=== PATIENT | male | born 1960 | race Caucasian/White ===

== ENCOUNTER 2017-05-16 06:15 | Inpatient (IN) | payer BC ==
[~2017-05-16] VITALS: Ht 175.3 cm; Wt 89.5 kg
[2017-05-16 06:21] VITALS: Ht 175.3 cm; Wt 89.5 kg
[2017-05-16 08:01] LABS: BASOPHIL % 0.3 % (0-2); PLATELET COUNT 135 x10^3mcL (130-400); RED CELL DISTRIBUTION WIDTH 13.5 % (11.5-14.5)
[2017-05-16 08:05] LABS: CALCIUM 8.8 mg/dL (8.5-10.1); CARBON DIOXIDE 20.9 mmol/L (21-32); CREATININE SERUM 2.1 mg/dL (0.7-1.3); POTASSIUM SERUM 4.1 mmol/L (3.5-5.1)
[2017-05-16 08:09] LABS: BILIRUBIN TOTAL 0.61 mg/dL (0.20-1.00); TOTAL PROTEIN, SERUM 6.3 g/dL (6.4-8.2)
[2017-05-16 08:16] LABS: ALBUMIN 3.2 g/dL (3.4-5.0)
[2017-05-16] MEDS ORDERED: ASPIR 8181 MG PO (09:39)
[2017-05-16] MEDS ORDERED: OMEPRAZOLE40 M1 PO (09:40)
[2017-05-16] MEDS ORDERED: CEL500 PO (09:40)
[2017-05-16] MEDS ORDERED: PRAVASTATIN SOD10 M1 PO (09:40)
[2017-05-16] MEDS ORDERED: PRINIVIL10 MG PO (09:40)
[2017-05-16] MEDS ORDERED: PREDNISONE2.5 MG PO (09:41)
[2017-05-16] MEDS ORDERED: CHLORTHALIDONE25 MG PO (09:41)
[2017-05-16] MEDS ORDERED: CORE25 PO (09:42)
[2017-05-16] MEDS ORDERED: CALCITRIOL0.25 MCG PO (09:42)
[2017-05-16] MEDS ORDERED: TRADJENTA5 M1 PO (09:42)
[2017-05-16] MEDS ORDERED: D3-50001 TAB PO (09:42)
[2017-05-16] MEDS ORDERED: PROGRAF1 MG PO (09:43)
[2017-05-16 10:59] LABS: T3 TOTAL 0.61 ng/mL
[2017-05-16 11:00] LABS: FREE T4 1.16 ng/dL (0.76-1.46); FREE THYROXINE INDEX 2.6 ug/dL (1.4-4.5); T4(THYROXINE) 6.7 ug/dL (4.7-13.3)
[2017-05-16 11:12] LABS: CHOLESTEROL/HDL RATIO 3.5; MAGNESIUM 1.1 mg/dL (1.8-2.4); PHOSPHOROUS 2.9 mg/dL (2.5-4.9)
[2017-05-16 11:15] VITALS: BP 116/68
[2017-05-16 12:38] VITALS: BP 126/69
[2017-05-16 16:41] VITALS: BP 117/66
[2017-05-16 21:17] VITALS: BP 125/64
[2017-05-17 06:34] VITALS: BP 171/86
[2017-05-17 07:07] LABS: CALCIUM 8.3 mg/dL (8.5-10.1); CARBON DIOXIDE 19.5 mmol/L (21-32); CREATININE SERUM 1.9 mg/dL (0.7-1.3)
[2017-05-17 08:45] VITALS: BP 149/76
[2017-05-17 10:29] LABS: microscopic required? NO
[2017-05-17 11:11] LABS: urine erythrocyte NEGATIVE (NEGATIVE)
[2017-05-17 11:16] LABS: AMPHETAMINE QUAL UR NONE DETECTED (NEG <=1000)
[2017-05-17 14:17] VITALS: BP 164/78
[2017-05-17 17:35] VITALS: BP 146/74
[2017-05-17 21:26] VITALS: BP 165/84
[2017-05-18 05:28] VITALS: BP 158/74
[2017-05-18 08:40] LABS: CALCIUM 8.3 mg/dL (8.5-10.1); CARBON DIOXIDE 19.3 mmol/L (21-32); CREATININE SERUM 1.6 mg/dL (0.7-1.3); POTASSIUM SERUM 3.9 mmol/L (3.5-5.1)
[2017-05-18 09:54] VITALS: BP 148/79
[2017-05-18] MEDS ORDERED: CARL PO (11:59)
[2017-05-18] MEDS ORDERED: LEVEMIR100 U/M1 SC ×2 (13:21→14:19)
[2017-05-18 14:02] VITALS: BP 148/79
[2017-05-18 14:41] VITALS: BP 158/79
== END 2017-05-18 15:07 | disposition home or self-care (01) | DRG 866 ==
LOC: ED 06:15 → DU 10:07
PROVIDERS: Emergency Medicine; Family Medicine; Internal Medicine
DX: B34.9 Viral infection, unspecified (principal); Z94.0 Kidney transplant status; N17.9 Acute kidney failure, unspecified; E87.1 Hypo-osmolality and hyponatremia; E44.0 Moderate protein-calorie malnutrition; I10 Essential (primary) hypertension; E86.0 Dehydration; Z95.1 Presence of aortocoronary bypass graft; Z79.82 Long term (current) use of aspirin; E83.42 Hypomagnesemia; E11.65 Type 2 diabetes mellitus with hyperglycemia
CPT/HCPCS: 82962; 83880; 84439; 87804; 90658; J0696; J1815; J2405; J3475; J7030; J7507; J7512; J7517; Q0092